=== PATIENT | male | born 1975 | race Caucasian/White ===

== ENCOUNTER 2019-06-14 19:38 | Emergency (ER) | payer SELFPAY ==
[~2019-06-14] VITALS: Ht 167.6 cm; Wt 76.2 kg
[2019-06-14 19:45] VITALS: BP 130/90
--- NOTE | 2019-06-14 19:45 | NUR ---
TO BED # 03 AMBULATORY
--- NOTE | 2019-06-14 19:50 | NUR ---
PT BIB SELF FOR C/O RUQ, RLQ, AND R FLANK PAIN 10/10 X 2 DAYS. PT AAO X4. BS PRESENT X 4. PT HAS C/O NAUSEA AND DIARRHEA. STOOL IS DARK BROWN IN COLOR. PT DENIES HX OF KIDNEY STONE. ABD IS ROUND SOFT AND TENDER TO TOUCH. AFEBRILE. DENIES COUGH. RESPIRATIONS ARE EVEN AND UNLABORED. SKIN IS WARM AND DRY TO TOUCH. PT RESTING IN BED EYES OPEN. BED LOCKED AND IN LOWEST POSITION.
[2019-06-14] MEDS ORDERED: ONDANSETRON 4 MG/2 ML VIAL IVP ONE (20:30)
[2019-06-14] MEDS ORDERED: KETOROLAC 15 MG/ML VIAL IVP ONE (20:30)
[2019-06-14] MEDS ORDERED: NACL 0.9% 1,000 ML IV ONE (20:30)
--- NOTE | 2019-06-14 20:42 | NUR ---
PT IV PLACED @ R AC 20G. IV SITE PATENT AND NO SWELLING OR PAIN NOTED.
--- NOTE | 2019-06-14 20:43 | NUR ---
PT GIVEN NS 0.9% BLOUS. RUNNING CONTINOUSLY. IV SITE PATENT.
--- NOTE | 2019-06-14 20:50 | NUR ---
PT ABLE TO AMBULATE TO RESTROOM WITH STEADY GAIT.
--- NOTE | 2019-06-14 20:53 | NUR ---
UA COLLECTED. TORADOL 15 MG GIVEN FOR PAIN IVP, ZOFRAN 4 GM GIVEN IVP FOR NAUSEA.
[2019-06-14 20:56] LABS: BASOPHILS # (AUTO) 0.1 K/uL (0.00-0.22); BASOPHILS % (AUTO) 0.6 % (0.0-2.0); EOSINOPHILS # (AUTO) 0.1 K/uL (0-0.4); EOSINOPHILS % (AUTO) 1.5 % (0.0-4.0); HEMATOCRIT 49.2 % (36-52); HEMOGLOBIN 17.1 g/dL (12.0-18.0); LYMPHOCYTES # (AUTO) 3.5 K/uL (2.0-11.5); MEAN CORPUSCULAR HEMOGLOBIN 30 pg (27-31); MEAN CORPUSCULAR HGB CONC 35 g/dL (33-37); MEAN CORPUSCULAR VOLUME 86.6 fL (80-94); MONOCYTES # (AUTO) 0.5 K/uL (0.8-1.0); MONOCYTES % (AUTO) 5.4 % (1.7-9.3); NEUTROPHILS # (AUTO) 5.2 K/uL (1.8-7.7); NEUTROPHILS % (AUTO) 55.5 % (42.2-75.2); PLATELET COUNT (AUTO) 167 K/uL (140-450); RED BLOOD CELL COUNT(AUTO) 5.68 MIL/uL (4.20-6.10); RED CELL DISTRIBUTION WIDTH 13.2 % (11.6-13.7); WHITE BLOOD COUNT (AUTO) 9.4 K/uL (4.8-10.8)
--- NOTE | 2019-06-14 21:10 | NUR ---
ULTRASOUND AT BEDSIDE.
[2019-06-14 21:13] LABS: APPEARANCE,URINE CLEAR (CLEAR); BILIRUBIN,URINE NEGATIVE (NEGATIVE); BLOOD, URINE NEGATIVE (NEGATIVE); COLOR,URINE YELLOW (YELLOW); LEUKOCYTE ESTERASE ,URINE NEGATIVE (NEGATIVE); NITRITE, URINE NEGATIVE (NEGATIVE); UGLUCOSE NEGATIVE (NEGATIVE)
--- NOTE | 2019-06-14 21:16 | NUR ---
IV FLUDIS RUNNING CONTINOUSLY. IV SITE IS PATENT. PT STATES NAUSEA HAS DECREASED. PT STATES PAIN HAS DECREASED FROM 10/10 TO 7/10 PAIN.
[2019-06-14 21:24] LABS: ALBUMIN 3.8 g/dL (3.4-5.0); ANION GAP 12.8 (8-16); CARBON DIOXIDE 29.9 mmol/L (21-32); CREATININE 0.9 mg/dL (0.6-1.3); POTASSIUM 3.7 mmol/L (3.5-5.1); TOTAL BILIRUBIN 0.5 mg/dL (0.0-1.0)
--- NOTE | 2019-06-14 22:02 | NUR ---
DR. ANDRES AT BEDSIDE.
[2019-06-14] MEDS ORDERED: MORPHINE SULFATE 4 MG/ML SYR IVP ONE (22:05)
--- NOTE | 2019-06-14 22:45 | NUR ---
PT TAKEN TO CT VIA W/C
--- NOTE | 2019-06-14 22:54 | NUR ---
PT RETURNED FROM CT VIA W/C
--- NOTE | 2019-06-14 23:48 | NUR ---
PT RESTING IN BED EYES COLSED. RESPIRATIONS ARE EVEN AND UNLABORED. PT ON MONITOR.
[2019-06-15] MEDS ORDERED: ALUMINUM HYD/MAG/SIMETHICONE 30 ML UDC PO ONE
[2019-06-15] MEDS ORDERED: LIDOCAINE VISCOUS 2% 20 ML UDC PO ONE
[2019-06-15 00:40] VITALS: BP 122/84
--- NOTE | 2019-06-15 00:40 | NUR ---
Patient discharged with v/s stable. Written and verbal after care instructions given and explained. Patient alert, oriented and verbalized understanding of instructions. Ambulatory with steady gait. All questions addressed prior to discharge. ID band removed. Patient advised to follow up with PMD. Rx of MYLANTA, OMAPREZOLE given. Patient educated on indication of medication including possible reaction and side effects. Opportunity to ask questions provided and answered.
--- NOTE | 2019-06-15 08:57 | NUR ---
Late entry. Confirmed with RN that 0.9 NS IV completed at 2130
== END 2019-06-15 00:40 | disposition home or self-care (01) ==
LOC: MED 19:38
DX: R10.11 Right upper quadrant pain (principal); R11.0 Nausea; R19.7 Diarrhea, unspecified
CPT/HCPCS: 36415; 74177; 76705; 80053; 81003; 83690; 85025; 96361; 96374; 96375; 99284; J1885; J2270; J2405; J7030; Q0092; Q9967